=== PATIENT | male | born 1965 | race Caucasian/White ===

== ENCOUNTER → 2016-11-02 | Outpatient (CLI) | payer BC | LOC: LAB.O 10:15 | PROVIDERS: ATTEND Nurse Practitioner Family | DX: R10.11 Right upper quadrant pain (principal); R19.7 Diarrhea, unspecified ==

== ENCOUNTER → 2016-11-02 | Outpatient (CLI) | payer BC, SELFPAY ==
--- NOTE | 2016-11-05 07:35 | CT ---
EXAM DESCRIPTION: Abdomen/Pelvis w/wo Contrast CLINICAL HISTORY: RIGHT UPPER QUAD PN COMPARISON: None. TECHNIQUE: Pre and postcontrast multidetector CT imaging of the abdomen and pelvis was performed. Multiplanar reconstructions were generated. This exam was performed according to our departmental dose-optimization program, which includes automated exposure control, adjustment of the mA and/or kV according to patient size and/or use of iterative reconstruction technique. FINDINGS: Visualized lung bases: Unremarkable. Liver: Liver is enlarged measuring 19.5 cm. Liver is heterogeneous and decreased attenuation compared to the spleen without focal mass. Gallbladder and biliary tree: Unremarkable. Pancreas: Unremarkable. Spleen : Unremarkable. Adrenals : Unremarkable. Abdominal vasculature: Mild atherosclerotic disease is seen. Kidneys and ureters : There are at least 2 possibly 5 mm low-attenuation lesions in the cortex of the upper pole right kidney that are too small to adequately characterize, but likely represent cortical cysts. Bladder: Unremarkable. Reproductive organs: Unremarkable. Bowel: The appendix is not identified. No secondary signs of acute appendicitis are seen. There are [id number] scattered diverticuli throughout the colon most prominently in the descending to sigmoid region without associated inflammatory changes or fluid collections. Lymph nodes: No retroperitoneal, mesenteric or pelvic lymphadenopathy is present by CT size criteria. Peritoneum: Unremarkable. Vessels: Unremarkable. Abdominal wall: Moderate fat-containing right inguinal hernia seen. Bones: No aggressive bony lesions are seen. Mild to moderate disc degenerative changes of the spine are seen. IMPRESSION: Hepatomegaly with evidence of diffuse fatty infiltration of the liver. Colon diverticulosis without CT evidence of diverticulitis. Right fat-containing inguinal hernia. Other findings as described in body of the report. Electronically signed by: Shaggy Marshall MD 11/05/2016 7:34 AM CDT
== END | disposition home or self-care (01) ==
LOC: CT 10:12
PROVIDERS: ATTEND Nurse Practitioner Family
DX: R10.11 Right upper quadrant pain (principal); R19.7 Diarrhea, unspecified

== ENCOUNTER 2020-03-14 13:10 | Observation (INO) | payer BC ==
--- NOTE | 2020-03-14 13:19 | ED.PDOC ---
History of Present Illness - General Stated Complaint: passed out while fishing Time Seen by Provider: 03/14/20 13:16 Additional Information: Patient with history of hypertension, patient presents to the ER because of a syncope episode while he was patient. Patient stated that he did have a good breakfast was not drinking lots of fluids while he was at the [facility] [facility], and then he had while he was patient, patient passed out for approximately 30 minutes, patient said of this is not the first time it has happened when he woke up he has distributed pain down his jaw all the way to his left arm, patient was diaphoretic denies any chest pain denies abdominal pain and feels a lot better - History of Present Illness Timing/Duration: resolved prior to arrival Severity: severe Improving Factors: nothing Worsening Factors: nothing Associated Symptoms: denies symptoms Allergies/Adverse Reactions: Allergies Codeine Allergy (Verified 01/17/16 12:01) Home Medications: Ambulatory Orders Aspirin (Buffered) 325 mg [Bufferin 325 mg] 1 ea PO QD 01/17/16 Valsartan 320 mg PO DAILY 01/17/16 Nitroglycerin 0.4 mg Tab [Nitrostat] 1 ea SL Q5MIN PRN #1 bttl 01/18/16 Spironolactone [Aldactone] 25 mg PO BID #0 tab 01/18/16 Review of Systems - Review of Systems Constitutional: States: no symptoms reported EENTM: States: no symptoms reported Respiratory: States: no symptoms reported Cardiology: States: no symptoms reported Gastrointestinal/Abdominal: States: no symptoms reported Genitourinary: States: no symptoms reported Musculoskeletal: States: no symptoms reported Skin: States: no symptoms reported Neurological: States: no symptoms reported Endocrine: States: no symptoms reported Hematologic/Lymphatic: States: no symptoms reported Past Medical History (General) - Patient Medical History Hx Asthma: No Hx of COPD: Yes - untreated, no problems past few years Hx Cardiac Disorders: Yes Hx Congestive Heart Failure: No Hx Pacemaker: No Hx Hypertension: Yes Hx Diabetes: No Hx Gastroesophageal Reflux: Yes Hx MRSA: No - Vaccination History Hx Tetanus, Diphtheria Vaccination: No Hx Influenza Vaccination: No Hx Pneumococcal Vaccination: No - Social History Hx Tobacco Use: Yes Family Medical History - Family History Father Family History: Unknown Living Status: Hx Cardiac Disease: Yes Hx Family Cancer: Yes Physical Exam - Physical Exam General Appearance: Well Developed, Other - pale Eye Exam: bilateral normal Ears, Nose, Throat: hearing grossly normal, normal ENT inspection, normal pharynx Neck: non-tender, full range of motion, supple Respiratory: chest non-tender, lungs clear, normal breath sounds, no respiratory distress Cardiovascular/Chest: normal peripheral pulses, regular rate, rhythm, no edema, no gallop, no JVD, no murmur Gastrointestinal/Abdominal: normal bowel sounds, non tender, soft, no organomeg campbell, no pulsatile mass Back Exam: normal inspection, no CVA tenderness, no vertebral tenderness Extremity: normal range of motion, non-tender, normal inspection, no pedal edema 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, no motor/sensory deficits, alert, normal mood/affect, oriented x 3 Skin Exam: normal color Lymphatic: no adenopathy Progress - Progress Progress: atient presents to the ER after a syncope episode, patient did have a good breakfast this morning went on to have infection in the leg but also negative past out for approximately 30 minutes, he is how this happened to him before, he has been seen by his doctor and they cannot come up with what is going on, I ordered a head CT here that was negative for intracranial maladies, chest x-ray did not show pneumonia, normal EKG with complete heart rate of 91 without any acute ischemic changes normal troponins, patient has no neurological deficit at the moment feels a lot better because of the description of symptoms and the syncope I feel like needed for observations, this patient does not any risk factor for pulmonary emboli, I suspect that this patient may have had any Heat syncope since he was patient outside, not drinking a lot of fluids and is extremely hot /20 14:06 03/14/20 14:08 Departure - Departure Clinical Impression: Syncope Qualifiers: Syncope type: heat syncope Encounter type: initial encounter Qualified Code(s): T67.1XXA - Heat syncope, initial encounter Disposition: Admit Patient Home Medications: Ambulatory Orders Aspirin (Buffered) 325 mg [Bufferin 325 mg] 1 ea PO QD 01/17/16 Valsartan 320 mg PO DAILY 01/17/16 Nitroglycerin 0.4 mg Tab [Nitrostat] 1 ea SL Q5MIN PRN #1 bttl 01/18/16 Spironolactone [Aldactone] 25 mg PO BID #0 tab 01/18/16 Decision To Admit - Decistion To Admit Decision to Admit Reason: Admit from ER Decision to Admit Date: 03/07/20 Decision to Admit Time: 14:08
--- NOTE | 2020-03-14 13:48 | RAD ---
EXAM DESCRIPTION: Chest,1 View CLINICAL HISTORY: syncope COMPARISON: 17 January 2016 TECHNIQUE: AP portable chest FINDINGS: The lungs are clear. There is no infiltrate or effusion. The heart is normal size. IMPRESSION: Normal portable chest Electronically signed by: Albaro Bocanegra MD 03/14/2020 1:46 PM CDT
--- NOTE | 2020-03-14 13:51 | CT ---
EXAM DESCRIPTION: Head CLINICAL HISTORY: syncope COMPARISON: 01 January 2020 TECHNIQUE: Non contrast cranial CT.This exam was performed according to our departmental dose-optimization program, which includes automated exposure control, adjustment of the mA and/or kV according to patient size and/or use of iterative reconstruction technique. FINDINGS: Periventricular white matter low-attenuation is observed particularly in the right frontal region. It remains unchanged the previous exam. Its felt represent evidence of ischemic demyelination. No intracranial hemorrhage is observed. No mass lesions or mass effect are noted. The paranasal sinuses and orbits as imaged are normal. The mastoid sinus air cells are clear. Exam also reveals evidence of prior lacunar infarction adjacent to the body of the right lateral ventricle in the hermos[place] radiata. No new regions of ischemia are detected. 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 No acute ischemia is detected. Further evaluation of this patient with magnetic resonance imaging might be considered. Electronically signed by: Albaro Bocanegra MD 03/14/2020 1:50 PM CDT
--- NOTE | 2020-03-14 15:03 | HP ---
SUPERVISING PHYSICIAN: Raymundo Higgins MD CHIEF COMPLAINT: Syncope. HISTORY OF PRESENT ILLNESS: This is a 54-year-old, male patient who went fishing with his roommate and his daughter today. He had actually gotten a little bit overheated and was not drinking a lot of fluids and he passed out for approximately 25 to 30 minutes. He has had recurrent episodes of syncope over the past year or so. He initially said the pain was in his left jaw to his left arm, he was diaphoretic but there was no actual chest pain. Once he to into the car to come to the hospital and cool down some, he felt better. He does not remember the majority of the incident. In the Emergency Room, his vital signs were temperature 96.2, heart rate 95, blood pressure 102/79, respiratory rate 18, oxygen saturation 94% on room air. Lab studies showed a WBC of 11.7 with hemoglobin of 14.9, hematocrit 41.9. Electrolytes were basically within normal limits but his creatinine was 1.6, his baseline creatinine is about 0.75. His liver enzymes were within normal limits. Troponin was less than 0.02 but his creatinine kinase was initially and went up to 515. His group A rapid strep was positive. Chest x-ray shows normal portable chest. 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 Further evaluation of this patient with MRI might be considered. The patient was placed in observation in the hospital in stable condition. PAST MEDICAL HISTORY: 1. Hypertension. 2. Gastroesophageal reflux disease. 3. Remote history of chronic obstructive pulmonary disease. 4. Obstructive sleep apnea but does not wear a CPAP 5. Arthritis. 6. History of multiple syncopal episodes in the past. . PAST SURGICAL HISTORY: Hernia repair. ALLERGIES: CODEINE. FAMILY HISTORY: Positive for myocardial infarction, lung cancer, arthritis and hypertension. SOCIAL HISTORY: He quit smoking approximately 20 years ago. He drinks alcohol about once or twice a month and denies any illicit drug use. He is and lives between [facility]. He sees Nargis Romero as his primary care physician. REVIEW OF SYSTEMS: GENERAL: Positive for fatigue, negative for fever or weight changes. HEENT: Denies sinus symptoms, ear pain, vision changes pain or sore throat. RESPIRATORY: Denies wheezing, coughing, shortness of breath. CARDIAC: Denies palpations or tachycardia. There is a consideration of chest pain since he had jaw pain that radiated to his left arm that was also accompanied by diaphoresis. GASTROINTESTINAL: Positive for mild nausea, negative for vomiting, diarrhea or constipation. NEUROLOGICAL: Positive for multiple syncopal spells over the last year, negative for seizures or dizziness, EXTREMITIES: Denies swelling. SKIN: Negative for lesions or rashes. PHYSICAL EXAMINATION: VITAL SIGNS: Temperature 98.0. Pulse 70. Blood pressure 91/50. Respiratory rate 18. O2 saturation 96% on room air. GENERAL: This is a 54-year-old male patient who is lying in his hospital bed. He is in no acute distress. HEENT: Normocephalic, atraumatic. Pupils are equal and reactive. Oropharynx clear but his oral mucous membranes are dry. NECK: Supple without mass. LUNGS: Clear to auscultation bilaterally. There is equal rise and fall of the chest with inspiration and expiration. CARDIAC: Regular rate and rhythm. ABDOMEN: Soft, nondistended, nontender. Bowel sounds are positive. EXTREMITIES: No cyanosis, clubbing or edema. NEUROLOGIC: He is awake, alert and oriented x3. Cranial nerves II through XII are grossly intact as tested. SKIN: Warm and dry. LABORATORY: Labs and films are as per the history of present illness. ASSESSMENT: 1. Syncope with loss of consciousness for approximately 30 minutes. 2. Acute renal injury. 3. Strep pharyngitis. 4. Dehydration. 5. Elevated CPK. 6. Chronic obstructive pulmonary disease without exacerbation. 7. Hypertension. 8. Gastroesophageal reflux disease. PLAN: The patient is placed in observation. We have initiated the chest pain guidelines as well as the neuro guidelines. He will have neuro checks and I will give him fluids to rehydrate him. I will also start him on azithromycin and Rocephin for his strep pharyngitis. I will have PPI for ulcer prophylaxis as well as Lovenox for DVT prophylaxis. I have ordered a brain MRI for in the morning and hopefully he can be discharged tomorrow or the next day. [id number]
[2020-03-14] MEDS ORDERED: ACETAMINOPHEN 325 MG TAB PO PRN (15:16)
[2020-03-14] MEDS ORDERED: NITROGLYCERIN 0.4 MG 25 EA TAB SL PRN (15:16)
[2020-03-14] MEDS ORDERED: SODIUM CHLORIDE 0.9% (FLUSH) 10 ML SYG IV PRN (15:16)
[2020-03-14] MEDS ORDERED: ONDANSETRON INJ 4 MG/2 ML VIAL IV PRN (15:19)
[2020-03-14] MEDS ORDERED: IV SET AND CAP CHANGE INJ INJ SCH (15:30)
[2020-03-14] MEDS ORDERED: KCL 20MEQ/0.45% NS 1,000 ML IVS ONE (19:54)
[2020-03-14] MEDS: SODIUM CHLORIDE 0.9% (FLUSH) 10 ML SYG IV SCH (20:51)
[2020-03-14] MEDS ORDERED: ENOXAPARIN SODIUM 40 MG/0.4 ML SYG SUBCU SCH (21:00)
[2020-03-14] MEDS ORDERED: TEMAZEPAM 15 MG CAP PO PRN (23:32)
[2020-03-14] MEDS ORDERED: AZITHROMYCIN IV 500 MG in SODIUM CHLORIDE 0.9% 250ML 250 ML IVPB SCH (23:45)
[2020-03-14] MEDS ORDERED: cefTRIAXone SODIUM 1 GM in SODIUM CHL 0.9% 50ML MIN-BAG+ 50 ML IVPB SCH (23:45)
[2020-03-15] MEDS ORDERED: SODIUM CHLORIDE 0.9% 250ML 250 ML ONE (01:23)
[2020-03-15] MEDS ORDERED: AZITHROMYCIN IV 500 MG VIAL IVPB ONE (01:23)
[2020-03-15] MEDS ORDERED: SODIUM CHL 0.9% 50ML MIN-BAG+ 50 ML IVPB ONE (01:23)
[2020-03-15] MEDS ORDERED: cefTRIAXone SODIUM 1 GM VIAL ONE (01:23)
[2020-03-15 05:30] VITALS: O2SAT 94
[2020-03-15] MEDS ORDERED: PANTOPRAZOLE SODIUM IV 40 MG VIAL IV SCH (06:30)
[2020-03-15] MEDS ORDERED: ENOXAPARIN SODIUM 40 MG/0.4 ML SYG SUBCU SCH (09:00)
--- NOTE | 2020-03-15 09:51 | MRI ---
EXAM DESCRIPTION: Brain w/oContrast CLINICAL HISTORY: syncope COMPARISON: CT head 03/14/2020 TECHNIQUE: Non contrast MRI of the brain is performed according to our usual protocol including multiplanar multi sequence technique. FINDINGS: No hemorrhage, mass effect, restricted diffusion, or acute infarction is present. There is normal configuration of the ventricles and sulci. Mild generalized volume loss. Moderate to severe T2/FLAIR hyperintensities in the supratentorial white matter. These are predominantly in the periventricular white matter. There is also a more confluent focus of T2/FLAIR signal in the anterior right frontal white matter measuring up to 2.5 cm, likely the sequela of remote injury/insult. No abnormal extra-axial fluid collections are present. Normal flow voids are present. The calvarium is intact. Visualized paranasal sinuses and mastoid air cells are clear. IMPRESSION: 1. No evidence of hemorrhage, mass effect, or acute infarction. 2. Moderate to severe T2/FLAIR hyperintensities in the supratentorial white matter. 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 Other etiologies, including a demyelinating disease, are statistically less likely but can have a similar appearance. 3. More focal T2/FLAIR signal in the anterior right frontal white matter, likely the sequela of remote injury/insult. If further imaging is desired, a follow-up MRI in the next 2-3 months could confirm stability. Electronically signed by: Brennon Colunga MD 03/15/2020 9:50 AM CDT
[2020-03-15] MEDS: SODIUM CHLORIDE 0.9% (FLUSH) 10 ML SYG IV SCH (10:00)
[2020-03-15 10:19] VITALS: BP 147/80; TEMP 97.6
--- NOTE | 2020-03-15 12:11 | US ---
EXAM DESCRIPTION: Carotid Duplex: ULTRASOUND. CLINICAL HISTORY: 54 years Male syncope COMPARISON: None. TECHNIQUE: Transcutaneous scanning utilizing levine-scale and Doppler modes to evaluate the bilateral carotid systems and vertebral arteries. Percentage of diameter of stenosis or no stenosis recorded will be based upon NASCET criteria. FINDINGS: Peak systolic/end diastolic velocities (CM-Sec) CCA Right 84/19 Left 124/21. ICA Right proximal 67/24, mid 93/34. Left proximal 51/8, mid 82/23. Vertebral Right 46/13 Left 33/8. ECA (PS Only) Right 137 left 116. ICA/CCA peak systolic velocity ratio: Right 1.1 Left 0.7 ICA/CCA end diastolic velocity ratio: Right 1.8 Left 1.1 Vertebral arteries: antegrade flow. Comments: Atherosclerotic plaque in the proximal right ICA. Spectral broadening in the distal right ICA and color turbulent flow in the mid ICA. Area and diameter stenosis in the proximal right ICA is less than 40%. IMPRESSION: 1. Doppler evaluation of the bilateral carotid systems and vertebral arteries shows no hemodynamically significant stenoses (less than 70%). 2. No significant amount of plaque in the carotid arteries bilaterally. Bilateral vertebral arteries showed antegrade-cephalad flow. Electronically signed by: Zay Sofia MD 03/15/2020 12:10 PM CDT
--- NOTE | 2020-03-19 20:40 | DS ---
SUPERVISING PHYSICIAN: Raymundo Higgins M.D. ADMISSION DIAGNOSIS: 1. Syncope with loss of consciousness for approximately 30 minutes. 2. Acute renal injury. 3. Strep pharyngitis. 4. Dehydration. 5. Elevated CPK. 6. Chronic obstructive pulmonary disease without exacerbation. 7. Hypertension. 8. Gastroesophageal reflux disease. DISCHARGE DIAGNOSIS: 1. Syncope with no acute findings, etiology uncertain and the patient discharged with 30 days cardiac telemetry. 2. Elevated CK, uncertain etiology with no mention of falls, possibly related to recent heat exposure with some mild rhabdomyolysis, but showing to return to baseline levels prior to discharge. 3. Group A Strep pharyngitis. 4. Dehydration possibly resulting in #2 showing improvement with fluids. 5. Chronic obstructive pulmonary disease without any signs of exacerbation on current admission. 6. Hypertension, stable. 7. Chronic gastroesophageal reflux disease. 8. MRI indicating likely advanced micro angiopathology needing further workup as an outpatient to rule out demyelinating disease. Repeat MRI for questionable remote injury or insults as noted on findings. Please see that MRI for full details. REASON FOR HOSPITALIZATION: This is a 54-year-old, male patient who went fishing with his roommate and his daughter today. He had actually gotten a little bit overheated and was not drinking a lot of fluids and he passed out for approximately 25 to 30 minutes. He has had recurrent episodes of syncope over the past year or so. He initially said the pain was in his left jaw to his left arm, he was diaphoretic but there was no actual chest pain. Once he to into the car to come to the hospital and cool down some, he felt better. He does not remember the majority of the incident. In the Emergency Room, his vital signs were temperature 96.2, heart rate 95, blood pressure 102/79, respiratory rate 18, oxygen saturation 94% on room air. Lab studies showed a WBC of 11.7 with hemoglobin of 14.9, hematocrit 41.9. Electrolytes were basically within normal limits but his creatinine was 1.6, his baseline creatinine is about 0.75. His liver enzymes were within normal limits. Troponin was less than 0.02 but his creatinine kinase was initially and went up to 515. His group A rapid strep was positive. Chest x-ray shows normal portable chest. 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 LABORATORY STUDIES: CBC on discharge showed a white count of 10,500, hemoglobin 13.5, hematocrit 38.1, platelet count 214,000. Differential shows to be without a left shift. Chemistries on discharge showed a sodium of 134, potassium 3.6, BUN 19, creatinine 1.106 which was down from 1.6 on admission. Liver functions were all showing to be within normal limits. Magnesium normal at 2.0, calcium low at 8.2. CPK was 625 on discharge. Lipid panel showed to be within normal limits. Group A rapid Strep was positive. RADIOLOGY: Chest x-ray in the Emergency Room per radiology interpretation showed normal portable chest. CT of the head shows findings of ischemic demyelination and evidence of prior infarction adjacent to the body of the right lateral ventricle. No acute ischemia is detected. This was followed-up with an MRI of the brain. See MRI for final report with impression showing no evidence of hemorrhage or mass effect or acute infarction. Again, please refer to that report for further details on the findings. Carotid artery Doppler ultrasound studies showed Doppler evaluation of bilateral carotid systems and vertebral arteries showing no hemodynamically significant stenosis which is less than 70%. No significant amount of plaque in the carotid arteries bilaterally. Bilateral vertebral arteries showed anterior grade - cephalad flow. See this report for details. EKG showed normal sinus rhythm with no ST or T wave changes to indicate acute ischemia. Echocardiogram showed a systolic function with estimated ejection fraction of 55%. See that report for details. HOSPITAL COURSE: Mr. Guevara was admitted for questionable syncopal episode prior to admission. He noted that he had been having episodes such as this reported well over several months. It felt like some of it was related to a change in his medication regarding his blood pressure. His blood pressure on admission was 102/79, heart rate 95. He was afebrile, satting 94%. On discharge, blood pressure 147/80, heart rate 80. He was afebrile. He was given fluids as it was felt that due to some maybe possible heat exposure he had some mild dehydration with questionable rhabdomyolysis. He did have an elevated creatinine and with fluids this did improve. He had no additional episodes. MRI was obtained and based off CT findings. Again, please refer to those details. The patient denied any actual trauma or any other issues, but those reports are available and need to be followed-up with repeat MRI in the next 2 to 3 months per recommendations of Radiology. He does not have any concerning EKG changes for acute coronary syndrome. He had no chest pains. He responded well to fluids and remained stable. It was felt that he had improved clinically and was showing to be stable enough to discharge to manage as an outpatient with clinical followup. Given that he reported these symptoms well over for 3 months and his syncopal episodes he is reporting, I went ahead and placed him on a quality assurance monitor MCOT for 30 days with those results to be sent to Nargis Romero, his primary care physician. Again, those need to all be forwarded to his primary care physician. Again, his vital signs on discharge showed that he was clinically stable with a temperature 97.6, pulse 80, blood pressure 147/80, respirations 16, satting 94% on room air. PHYSICAL EXAMINATION: GENERAL: He was in no acute distress. He was alert. CHEST: Clear to auscultation. HEART: Regular rate and rhythm. ABDOMEN: Soft, non-tender. Positive bowel sounds. EXTREMITIES: Without any edema. NEUROLOGIC: He was alert and oriented times three with no concerning neurological findings showing no focal motor deficits. Facial features were symmetrical. Extraocular movements are within normal limits. PLAN: Mr. Guevara is discharged with instructions that he is to followup with Nargis Romero and call their office for an appointment. He is to call Medical Records to get all imaging studies. He was supposed to be given an imaging disc on discharge. No new medications were prescribed at time of discharge. He was encouraged to return to the Emergency Department if he had other concerning symptoms. Diet on discharge was regular diet as tolerated. Activity is he was encouraged to increase activity as tolerated but to avoid any extreme heat environments and to push fluids to prevent dehydration. He will need repeat labs, specifically CK level at followup as his CK level was a little elevated at discharge. Condition on discharge was stable and improved. DISPOSITION: The patient is discharged home. [id number] [facility]
== END 2020-03-15 12:35 | disposition home or self-care (01) ==
LOC: ER 13:10 → MS 15:02
PROVIDERS: ADMIT Nurse Practitioner Acute Care; ATTEND Nurse Practitioner Family
DX: R55 Syncope and collapse (principal); N17.9 Acute kidney failure, unspecified; J02.0 Streptococcal pharyngitis; E86.0 Dehydration; R74.8 Abnormal levels of other serum enzymes; J44.9 Chronic obstructive pulmonary disease, unspecified; I11.9 Hypertensive heart disease without heart failure; K21.9 Gastro-esophageal reflux disease without esophagitis; I34.0 Nonrheumatic mitral (valve) insufficiency; I65.23 Occlusion and stenosis of bilateral carotid arteries; G47.33 Obstructive sleep apnea (adult) (pediatric); M19.90 Unspecified osteoarthritis, unspecified site; Z79.82 Long term (current) use of aspirin; Z79.899 Other long term (current) drug therapy; Z88.6 Allergy status to analgesic agent; Z87.891 Personal history of nicotine dependence; Z82.49 Family history of ischemic heart disease and other diseases of the circulatory system; Z80.1 Family history of malignant neoplasm of trachea, bronchus and lung; Z82.61 Family history of arthritis
CPT/HCPCS: 96366 ×2; 96365; 96375; 96372 ×2; J0696; J7050 ×2; J1650 ×2; J0456; A4216; J3480; 82553 ×2; 80053 ×2; 87880; 80061; 36415 ×5; 85025 ×2; 82550 ×5; 83735; 84484 ×3; 71045; 70450; 93880; 94760 ×2; 99285; 93306; 70551; 93005; 93229; G0378